=== PATIENT | female | born 1965 | race Hispanic/Latino ===

== ENCOUNTER 2025-05-06 12:02 | Emergency (ER) | payer OTHER ==
[~2025-05-06] VITALS: Ht 162.6 cm; Wt 61.2 kg
[2025-05-06 12:35] VITALS: TEMP 98.6
[2025-05-06] MEDS: KETOROLAC TROMETHAMINE 60 MG/2 ML VIAL IM ONE (13:23)
[2025-05-06 14:30] VITALS: PULSE 80; RESP 21; O2SAT 100
== END 2025-05-06 15:11 | disposition home or self-care (01) ==
LOC: ER 12:52
DX: R06.02 Shortness of breath (principal); S20.212A Contusion of left front wall of thorax, initial encounter; R11.0 Nausea; Y04.0XXA Assault by unarmed brawl or fight, initial encounter; Y92.89 Other specified places as the place of occurrence of the external cause; K21.9 Gastro-esophageal reflux disease without esophagitis; F41.9 Anxiety disorder, unspecified
CPT/HCPCS: 71250; 93005; 99283; J1885